=== PATIENT | female | born 1955 | race Caucasian/White ===

== ENCOUNTER → 2016-09-26 | Outpatient (CLI) | payer BC, SELFPAY ==
[~2016-09-26] MED LIST: ASPIR-LOW81 MG PO; COLACE 100MG C100 MG PO; EFFEXOR XR 150150 MG PO; FARXIGA10 MG PO; LEVOXYL25 MCG PO; NEXIUM40 MG PO; NORFLEX 100 MG100 MG PO; PRAVACHOL80 MG PO; RANEXA500 MG PO; TENORMIN 25 MG25 MG PO; VALACYCLOVIR500 MG PO
== END ==
LOC: HEART 5 07:45
DX: Z01.810 Encounter for preprocedural cardiovascular examination (principal); I25.10 Atherosclerotic heart disease of native coronary artery without angina pectoris; E11.9 Type 2 diabetes mellitus without complications
CPT/HCPCS: 78452; A9502; J2785

== ENCOUNTER → 2016-10-26 | Outpatient (CLI) | payer BC, OTHER ==
[2016-10-26 15:14] LABS: HEMOGLOBIN 15.3 gm/dl (12.3-15.3); RED BLOOD COUNT 5.1 M/UL (4.00-5.10); WHITE BLOOD COUNT 8.1 K/UL (4.5-11.0)
[2016-10-26 15:49] LABS: BUN/CREATININE RATIO 24 (0-10)
== END ==
LOC: LAB 14:11
PROVIDERS: Internal Medicine Interventional Cardiology
DX: Z01.810 Encounter for preprocedural cardiovascular examination (principal)
CPT/HCPCS: 36415; 80048; 85025; 85610; 85730; 93005

== ENCOUNTER → 2016-10-27 | Outpatient (CLI) | payer BC, OTHER ==
[~2016-10-27] VITALS: Ht 165.1 cm; Wt 72.1 kg
== END ==
LOC: CATH 10-20 07:30
DX: R94.39 Abnormal result of other cardiovascular function study (principal); I25.118 Atherosclerotic heart disease of native coronary artery with other forms of angina pectoris; I10 Essential (primary) hypertension; E78.5 Hyperlipidemia, unspecified; E11.9 Type 2 diabetes mellitus without complications; R06.02 Shortness of breath; R00.2 Palpitations; Z88.1 Allergy status to other antibiotic agents; Z88.8 Allergy status to other drugs, medicaments and biological substances; Z79.84 Long term (current) use of oral hypoglycemic drugs; Z79.82 Long term (current) use of aspirin; Z79.899 Other long term (current) drug therapy; Z98.890 Other specified postprocedural states
CPT/HCPCS: 82962; C1769; J1644; J2250; J3010; J7030; Q0163; Q9963

== ENCOUNTER → 2020-08-11 | Outpatient (CLI) | payer OTHER ==
[~2020-08-11] MED LIST changes: +ALLERGY RELIEF10 M3 PO; +ASPIR 8181 MG PO; +BETAMETHASONE CREAM TD; +CITRATE OF MAG296 ML PO; +COL-RITE250 MG PO; +ECOTRIN81 MG PO; +EFFEXOR XR150 MG PO; +ESOMEPRAZOLE MA40 MG PO; +GLUCOTROL5 MG PO; +HYDROXYZINE HCL50 MG PO; +IBU800 MG PO; +IMDUR ER TAB 3030 MG PO; +LINZESS145 MCG PO; +LOPRESSOR 25 MG25 MG PO; +MIRALAX17 GM PO; +NORCO 5-325 TA1 EACH PO; +ONCE DAILY1 EACH PO; +RANEXA1000 MG PO; +STOOL SOFTENER100 M1 PO; +SYNTHROID75 MCG PO; +TRIAMCINOLONE CREAM TD; +VALTREX 500 MG500 MG PO; +VIT D PO; +VITAMIN D250000 UNIT PO; +WOMENS VITAMIN PO; +ZITHROMAX250 MG PO
== END ==
LOC: KOH-I 14:30
DX: M25.561 Pain in right knee (principal)
CPT/HCPCS: 73562

== ENCOUNTER → 2021-09-21 | Outpatient (CLI) | payer OTHER | LOC: KOH-I 14:25 | DX: R51.9 Headache, unspecified (principal); H53.9 Unspecified visual disturbance; R26.89 Other abnormalities of gait and mobility; G31.9 Degenerative disease of nervous system, unspecified | CPT/HCPCS: 70551 ==

== ENCOUNTER 2021-09-25 12:58 | Emergency (ER) | payer OTHER ==
[2021-09-25 15:44] LABS: HEMOGLOBIN 14.3 gm/dl (12.3-15.3); RED BLOOD COUNT 4.46 M/UL (4.00-5.10); WHITE BLOOD COUNT 5.8 K/UL (4.5-11.0)
[2021-09-25 16:11] LABS: BUN/CREATININE RATIO 19 (0-10)
[2021-09-25] MEDS ORDERED: MEDI-MECLIZINE25 MG PO (22:26)
[2021-09-25] MEDS ORDERED: ONDANSETRON ODT4 MG SL (22:26)
== END 2021-09-25 22:41 | disposition home or self-care (01) ==
LOC: ER1 12:58
PROVIDERS: Physician Assistant
DX: R51.9 Headache, unspecified (principal); R47.81 Slurred speech; R29.898 Other symptoms and signs involving the musculoskeletal system; I10 Essential (primary) hypertension; Z79.82 Long term (current) use of aspirin
CPT/HCPCS: 70450; 70496; 70498; 71045; 80053; 81001; 82550; 82553; 84484; 85025; 85610; 87086; 93005; 96374; 96375; 99285; J1200; J1885; J2765; Q9967

== ENCOUNTER → 2021-10-11 | Outpatient (CLI) | payer OTHER ==
[~2021-10-11] MED LIST changes: +MEDI-MECLIZINE25 MG PO; +ONDANSETRON ODT4 MG SL
== END ==
LOC: KOH-I 15:33
DX: R07.81 Pleurodynia (principal); R29.6 Repeated falls
CPT/HCPCS: 71111

== ENCOUNTER → 2021-11-10 | Outpatient (CLI) | payer OTHER | LOC: HEART 5 08:00 | DX: R00.2 Palpitations (principal); R00.0 Tachycardia, unspecified ==

== ENCOUNTER 2021-11-19 20:11 | Emergency (ER) | payer OTHER ==
[2021-11-19 21:20] LABS: HEMOGLOBIN 13.4 gm/dl (12.3-15.3); RED BLOOD COUNT 4.17 M/UL (4.00-5.10); WHITE BLOOD COUNT 9.3 K/UL (4.5-11.0)
[2021-11-19 21:40] LABS: BUN/CREATININE RATIO 27 (0-10)
[2021-11-19] MEDS ORDERED: COMPAZINE 10MG10 MG PO (22:49)
== END 2021-11-19 23:25 | disposition home or self-care (01) ==
LOC: ER1 20:11
PROVIDERS: Emergency Medicine
DX: R10.9 Unspecified abdominal pain (principal); I10 Essential (primary) hypertension; E11.9 Type 2 diabetes mellitus without complications; Z88.9 Allergy status to unspecified drugs, medicaments and biological substances
CPT/HCPCS: 80053; 81001; 83690; 85025; 86140; 96361; 96374; 96375; 99284; J0780; J2270